=== PATIENT | female | born 1985 | race Caucasian/White ===

== ENCOUNTER 2020-04-19 11:52 | Emergency (ER) | payer OTHER ==
[~2020-04-19] VITALS: Ht 152.4 cm; Wt 42.6 kg
[2020-04-19] MEDS ORDERED: ONDANSETRON ODT 4 MG TAB.RAPDIS PO ONE (12:45)
[2020-04-19] MEDS ORDERED: MORPHINE SULFATE 4 MG/ML DISP.SYRIN. IV ONE (12:45)
[2020-04-19] MEDS ORDERED: IV NORMAL SALINE 1,000ML 1,000 ML IV ONE (12:45)
[2020-04-19] MEDS ORDERED: ONDANSETRON PF 4 MG/2 ML VIAL. IVP ONE (12:45)
--- NOTE | 2020-04-19 13:06 | RAD ---
XR CHEST 1V History: Reason: N/V / Spl. Instructions: / History: Comparison: None. Technique: Portable AP chest radiograph. Findings: The lungs are adequately and symmetrically inflated. No airspace consolidation, pleural effusion or p neumothorax. The cardiomediastinal silhouette and pulmonary vasculature are within normal limits. Sof t tissues and osseous structures are unremarkable. Impression: 1. No acute cardiopulmonary process. Electronically signed by: Donnie Bradshaw MD (04/19/2020 1:03 PM) [facility]
[2020-04-19 13:08] LABS: BASO # 0.2 x10^3/uL (0.0-0.2); BASO % 1 % (0-3); EOS % 0 % (0-3); HEMATOCRIT 39.5 % (36.0-47.0); HEMOGLOBIN 13.2 g/dL (12.0-15.5); LYMPH # 1.9 x10^3/uL (1.0-4.8); LYMPH % 8 % (24-48); MEAN CORPUSCULAR HEMOGLOBIN 29 pg (25-35); MEAN CORPUSCULAR HGB CONC 33 g/dL (31-37); MEAN CORPUSCULAR VOLUME 88 fL (79-100); MONO # 1.7 x10^3/uL (0.0-1.1); MONO % 7 % (0-9); NEUT # 20.6 x10^3uL (1.8-7.7); NEUT % 84 % (31-73); PLATELET COUNT 252 x10^3/uL (140-400); RED BLOOD COUNT 4.51 x10^6/uL (3.50-5.40); RED CELL DISTRIBUTION WIDTH 13.4 % (11.5-14.5); WHITE BLOOD COUNT 24.4 x10^3/uL (4.0-11.0)
[2020-04-19 13:19] LABS: CALCIUM 9.6 mg/dL (8.5-10.1); CREATININE 0.8 mg/dL (0.6-1.0); GFR 81.2
--- NOTE | 2020-04-19 13:24 | PHYS DOC ---
Past History Past Medical History: Kidney Infection Past Surgical History: Hysterectomy, Tubal ligation Alcohol Use: Rarely General Adult EDM: Chief Complaint: NAUSEA/VOMITING/DIARRHEA HPI: HPI: Patient is a 35-year-old female who presents with nausea/vomiting/diarrhea, sore throat, fever, generalized abdominal pain since last night. Patient states that she woke up in the middle night vomiting and having diarrhea. Patient was running a fever of 102.5 at home. No fever on arrival to emergency room. Patient is also stating "I feel like my throat is on fire". Patient denies any frequency or dysuria. Denies chest pain, shortness of breath. Denies taking anything at home for pain. States "my neighbor called me in a prescription for Z-Pilo because she thought I had strep throat". "I took my first dose today". Review of Systems: Review of Systems: Constitutional: Denies fever or chills Eyes: Denies change in visual acuity HENT: Denies nasal congestion, reports sore throat Respiratory: Denies cough or shortness of breath Cardiovascular: Denies chest pain or edema GI: Reports generalized abdominal pain, nausea, vomiting, diarrhea : Denies dysuria Musculoskeletal: Denies back pain or joint pain Integument: Denies rash Neurologic: Denies headache, focal weakness or sensory changes Endocrine: Denies polyuria or polydipsia Lymphatic: Denies swollen glands Psychiatric: Denies depression or anxiety Current Medications: Current Meds: Current Medications Medications (Trade) Dose Ordered Sig/[place] Start Time Stop Time Status Last Admin Dose Admin Morphine Sulfate (Morphine 4mg Syringe) 4 mg 1X ONCE 04/19/20 12:45 04/19/20 12:48 DC 04/19/20 13:01 4 MG Ondansetron HCl (Zofran Odt) 4 mg 1X ONCE 04/19/20 12:45 04/19/20 12:46 DC Ondansetron HCl (Zofran) 4 mg 1X ONCE 04/19/20 12:45 04/19/20 12:48 DC 04/19/20 13:01 4 MG Sodium Chloride 1,000 ml @ 1,000 mls/hr 1X ONCE 04/19/20 12:45 04/19/20 13:44 04/19/20 13:01 1,000 MLS/HR Allergies: Allergies: Allergies Coded Allergies Type Severity Reaction Last Updated Verified Penicillins Allergy Unknown 04/19/20 Yes Physical Exam: PE: Constitutional: Well developed, well nourished, no acute distress, non-toxic appearance. [] HENT: Normocephalic, atraumatic, bilateral external ears normal, oropharynx moist, oral exudates, redness to tonsils Eyes: PERRLA, EOMI, conjunctiva normal, no discharge. [] Neck: Normal range of motion, no tenderness, supple, no stridor. [] Cardiovascular:Heart rate regular rhythm, no murmur [] Lungs & Thorax: Bilateral breath sounds clear to auscultation [] Abdomen: Bowel sounds normal, soft, no tenderness, no masses, no pulsatile masses. [] Skin: Warm, dry, no erythema, no rash. [] Back: No tenderness, no CVA tenderness. [] Extremities: No tenderness, no cyanosis, no clubbing, ROM intact, no edema. [] Neurologic: Alert and oriented X 3, normal motor function, normal sensory function, no focal deficits noted. [] Psychologic: Affect normal, judgement normal, mood normal. [] Current Patient Data: Labs: Laboratory Tests Test 04/19/20 12:50 04/19/20 12:52 Group A Streptococcus Rapid Negative (NEGATIVE) White Blood Count 24.4 x10^3/uL (4.0-11.0) H Red Blood Count 4.51 x10^6/uL (3.50-5.40) Hemoglobin 13.2 g/dL (12.0-15.5) Hematocrit 39.5 % (36.0-47.0) Mean Corpuscular Volume 88 fL (79-100) Mean Corpuscular Hemoglobin 29 pg (25-35) Mean Corpuscular Hemoglobin Concent 33 g/dL (31-37) Red Cell Distribution Width 13.4 % (11.5-14.5) Platelet Count 252 x10^3/uL (140-400) Neutrophils (%) (Auto) 84 % (31-73) H Lymphocytes (%) (Auto) 8 % (24-48) L Monocytes (%) (Auto) 7 % (0-9) Eosinophils (%) (Auto) 0 % (0-3) Basophils (%) (Auto) 1 % (0-3) Neutrophils # (Auto) 20.6 x10^3uL (1.8-7.7) H Lymphocytes # (Auto) 1.9 x10^3/uL (1.0-4.8) Monocytes # (Auto) 1.7 x10^3/uL (0.0-1.1) H Eosinophils # (Auto) 0.0 x10^3/uL (0.0-0.7) Basophils # (Auto) 0.2 x10^3/uL (0.0-0.2) Platelet Estimate Pending Vital Signs: Vital Signs Date Time Temp Pulse Resp B/P (MAP) Pulse Ox O2 Delivery O2 Flow Rate FiO2 04/19/20 13:01 16 99 Room Air 04/19/20 12:38 98.7 98 144/84 (104) EKG: EKG: Sinus rhythm. Heart rate 88 bpm. [] Radiology/Procedures: Radiology/Procedures: []CT ABDOMEN+PELVIS WO History: Reason: ABD PAIN / Spl. Instructions: / History: Comparison: CT abdomen and pelvis 01/13/2008 Technique: CT of the abdomen and pelvis without contrast. Findings: The lung bases are clear. Liver, gallbladder, bile ducts, pancreas, spleen, and adrenal glands are unremarkable. There is subtle increased attenuation at the renal pyramids with a 2 mm right lower pole nephrolith. No hydronephrosis. The stomach, and small bowel and appendix are unremarkable. Within the cecum, just distal to the ileocecal valve there is a 1.9 cm curvilinear calcific density. No evidence of perforation or wall thickening. Status post hysterectomy. The nondistended bladder is unremarkable. Soft tissues and osseous structures are within normal limits. Impression: 1. Foreign body within the cecum just distal to the ileocecal valve which is 1.9 cm curvilinear calcific density, possibly representing a ingested items such as a fishbone. No evidence of perforation or colonic wall inflammation. ------ Exposure: One or more of the following individualized dose reduction techniques were utilized for this examination: 1. Automated exposure control 2. Adjustment of the mA and/or kV according to patient size 3. Use of iterative reconstruction technique. Electronically signed by: Donnie Bradshaw MD (04/19/2020 1:36 PM) [facility] XR CHEST 1V History: Reason: N/V / Spl. Instructions: / History: Comparison: None. Technique: Portable AP chest radiograph. Findings: The lungs are adequately and symmetrically inflated. No airspace consolidation, pleural effusion or pneumothorax. The cardiomediastinal silhouette and pulmonary vasculature are within normal limits. Soft tissues and osseous structures are unremarkable. Impression: 1. No acute cardiopulmonary process. Electronically signed by: Donnie Bradshaw MD (04/19/2020 1:03 PM) [facility] Heart Score: Risk Factors: Risk Factors: DM, Current or recent (<one month) smoker, HTN, HLP, family history of CAD, obesity. Risk Scores: Score 0 - 3: 2.5% MACE over next 6 weeks - Discharge Home Score 4 - 6: 20.3% MACE over next 6 weeks - Admit for Clinical Observation Score 7 - 10: 72.7% MACE over next 6 weeks - Early Invasive Strategies Course & Med Decision Making: Course & Med Decision Making Pertinent Labs and Imaging studies reviewed. (See chart for details) []Patient is a 35-year-old female who presents with nausea/vomiting/diarrhea, sore throat, fever, generalized abdominal pain since last night. Patient states that she woke up in the middle night vomiting and having diarrhea. Patient was running a fever of 102.5 at home. No fever on arrival to emergency room. Patient is also stating "I feel like my throat is on fire". Patient denies any frequency or dysuria. Denies chest pain, shortness of breath. Denies taking anything at home for pain. States "my neighbor called me in a prescription for Z-Pilo because she thought I had strep throat". "I took my first dose today". Rapid strep ordered. Negative for strep. Patient given morphine and Zofran for pain and nausea. Patient's urine is positive for WBCs and nitrates. Antibiotic ordered to take at home. Potassium is 2.9. 40 M EQ p.o. potassium given in the ER. White count of 24.5. Chest x-ray is negative for any acute abnormality. CT of abdomen and pelvis shows Foreign body within the cecum just distal to the ileocecal valve which is 1.9 cm curvilinear calcific density, possibly representing a ingested items such as a fishbone. No evidence of perforation or colonic wall inflammation. Rocephin given for UTI. Patient being admitted to [facility] with sepsis pyelonephritis. spoke with , general surgery regarding foreign body. Dr. Vegas denying need for intervention. 650 of Tylenol given for fever. Spoke with Dr. Moore at [facility]. Willing to admit patient at [facility] Ankit Disclaimer: Ankit Disclaimer: This electronic medical record was generated, in whole or in part, using a voice recognition dictation system. Departure Departure: Impression: Primary Impression: Nausea vomiting and diarrhea Disposition: 01 DC HOME SELF CARE/HOMELESS Condition: STABLE Patient Instructions: Urinary Tract Infection, [id number] YESI LARA APRN Apr 19, 2020 13:24
[2020-04-19 13:27] LABS: POTASSIUM 2.9 mmol/L (3.5-5.1)
--- NOTE | 2020-04-19 13:39 | RAD ---
CT ABDOMEN+PELVIS WO History: Reason: ABD PAIN / Spl. Instructions: / History: Comparison: CT abdomen and pelvis 01/13/2008 Technique: CT of the abdomen and pelvis without contrast. Findings: The lung bases are clear. Liver, gallbladder, bile ducts, pancreas, spleen, and adrenal glands are unremarkable. There is subtl e increased attenuation at the renal pyramids with a 2 mm right lower pole nephrolith. No hydronephro sis. The stomach, and small bowel and appendix are unremarkable. Within the cecum, just distal to the ileo cecal valve there is a 1.9 cm curvilinear calcific density. No evidence of perforation or wall thicke dayanara. Status post hysterectomy. The nondistended bladder is unremarkable. Soft tissues and osseous st ructures are within normal limits. Impression: 1. Foreign body within the cecum just distal to the ileocecal valve which is 1.9 cm curvilinear calc ific density, possibly representing a ingested items such as a fishbone. No evidence of perforation o r colonic wall inflammation. ------ Exposure: One or more of the following individualized dose reduction techniques were utilized for thi s examination: 1. Automated exposure control 2. Adjustment of the mA and/or kV according to patient size 3. Use of iterative reconstruction technique. Electronically signed by: Donnie Bradshaw MD (04/19/2020 1:36 PM) [facility]
--- NOTE | 2020-04-19 13:49 | EKG ---
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
[2020-04-19 14:17] LABS: % BANDS 2 % (0-9); % EOS 1 % (0-5); % LYMPHS 5 % (24-48); % MONOS 5 % (0-10); % SEGS 87 % (35-66)
[2020-04-19 14:18] LABS: PLT ESTIMATE ADEQUATE (ADEQUATE)
[2020-04-19 14:28] LABS: BILIRUBIN,URINE NEG (NEG); CLARITY,URINE HAZY; COLOR,URINE YELLOW; GLUCOSE,URINE NEG (NEG); NITRITE,URINE POS (NEG); UROBILINOGEN,URINE 0.2 mg/dL (0.2 mg/dL)
[2020-04-19 14:29] LABS: BACTERIA,URINE MANY /HPF (0-FEW); SQUAMOUS EPITHELIAL CELL,UR MOD /LPF; WBC,URINE OCC /HPF (0-4)
[2020-04-19] MEDS ORDERED: POTASSIUM CHLORIDE 20 MEQ TABLET.ER. PO ONE (14:45)
[2020-04-19] MEDS ORDERED: ACETAMINOPHEN 325 MG TABLET PO ONE (15:00)
[2020-04-19] MEDS ORDERED: cefTRIAXone SODIUM 1 GM VIAL ONE (15:47)
[2020-04-19] MEDS ORDERED: IV NORMAL SALINE 50ML 50 ML ONE (15:47)
[2020-04-19 16:47] VITALS: BP 123/77
[2020-04-19] MEDS ORDERED: MORPHINE SULFATE 4 MG/ML DISP.SYRIN. ONE (17:46)
== END 2020-04-19 17:48 | disposition home or self-care (01) ==
LOC: ER 11:52
DX: R11.2 Nausea with vomiting, unspecified (principal); R19.7 Diarrhea, unspecified; J02.9 Acute pharyngitis, unspecified; N15.9 Renal tubulo-interstitial disease, unspecified; Z90.710 Acquired absence of both cervix and uterus; Z98.51 Tubal ligation status; Z88.0 Allergy status to penicillin
CPT/HCPCS: 36415; 71045; 74176; 80048; 81001; 83605; 83735; 85007; 85025; 87040; 87070; 87086; 87880; 93005; 96361; 96365; 96375; 99285; J0696; J2270; J2405; J7030; 87077; 87186